=== PATIENT | male | born 1965 | race African-American/Black ===

== ENCOUNTER 2016-12-15 17:15 | Emergency (ER) | payer OTHER ==
[~2016-12-15] VITALS: Ht 172.7 cm; Wt 76.8 kg
[2016-12-15 18:11] LABS: HEMATOCRIT 45.3 % (38.0-50.0); MCH 31.1 PG (29.0-34.0); MCHC 33.3 G/DL (30.0-36.0); MCV 93.4 FL (86-99); RBC DIS.WIDTH-CV 14.1 % (11.8-14.6); RBC DIS.WIDTH-SD 48.8 % (39-53); RED BLOOD COUNT 4.85 M/uL (4.00-5.50); WHITE BLOOD COUNT 5.4 K/uL (4.1-10.2)
[2016-12-15 18:19] LABS: CHLORIDE 106 mEq/L (99-109); SODIUM 138 mEq/L (136-147)
[2016-12-15 18:21] LABS: GLUCOSE 124 mg/dL (70-99)
[2016-12-15 18:22] LABS: ANION GAP 8 MEQ/L (2-14)
[2016-12-15 18:23] LABS: TOTAL BILIRUBIN 0.4 mg/dL (0.0-1.0)
[2016-12-15 18:24] LABS: SERUM ETHYL ALCOHOL < 10 mg/dL
[2016-12-15 18:25] LABS: ALKALINE PHOSPHATASE 72 IU/L (3-129); GFR ESTIMATE (CALCULATED) > 59 mL/min/
[2016-12-15 18:26] LABS: UREA NITROGEN (BUN) 17 mg/dL (9-23)
[2016-12-15 18:42] LABS: ADD MIUA? NO; BILIRUBIN NEGATIVE; BLOOD NEGATIVE; COLOR YELLOW ((YELLOW)); GLUCOSE (STRIP) NEGATIVE; KETONES NEGATIVE; LEUKOCYTES NEGATIVE; NITRITE NEGATIVE; PROTEIN (STRIP) NEGATIVE; SPECIFIC GRAVITY 1.015 (1.000-1.030); UROBILINOGEN 0.2 MG/DL (0.2-1.0)
[2016-12-15 18:51] LABS: ADD MEDTOX COMMENT Y; AMPHETAMINE NEGATIVE (500 ng/mL); BARBITURATES NEGATIVE (200 ng/mL); BENZODIAZEPINES PRESUMPTIVE POSITIVE (150 ng/mL); COCAINE NEGATIVE (150 ng/mL); INTERNAL CONTROLS VALID? YES; METHADONE NEGATIVE (200 ng/mL); METHAMPHETAMINE NEGATIVE (500 ng/mL); OPIATES (MORPHINE) NEGATIVE (100 ng/mL); OXYCODONE NEGATIVE (100 ng/mL); PHENCYCLIDINE NEGATIVE (25 ng/mL); PROPOXYPHENE NEGATIVE (300 ng/mL); THC CANNABINOIDS NEGATIVE (50 ng/mL); TRICYCLIC ANTIDEPRESSANTS NEGATIVE (300 ng/mL)
[2016-12-15 19:19] LABS: MEAN PLAT.VOLUME 9.6 uM^3 (9.0-12.4); PLATELET COUNT 197 K/uL (156-360)
[2016-12-15 19:51] LABS: BENZODIAZEPINES, URINE SCREEN POSITIVE (200 ng/mL)
[2016-12-15 22:19] VITALS: BP 114/73
== END 2016-12-15 22:22 ==
LOC: EME 17:15
PROVIDERS: Emergency Medicine
DX: R45.4 Irritability and anger (principal); Z87.820 Personal history of traumatic brain injury; F43.25 Adjustment disorder with mixed disturbance of emotions and conduct; F09 Unspecified mental disorder due to known physiological condition
CPT/HCPCS: 80053; 81003; 84999; 85027; 90837; 99281; 99285; G0480